=== PATIENT | male | born 1970 | race Caucasian/White ===

== ENCOUNTER 2020-10-17 11:54 | Emergency (ER) | payer OTHER ==
[~2020-10-17] VITALS: Ht 167.6 cm; Wt 98.9 kg
[2020-10-17 12:00] VITALS: BP 154/100
[2020-10-17] MEDS ORDERED: PROAIR HFA8.5 GM INH (12:04)
[2020-10-17] MEDS ORDERED: NORCO5 PO (12:56)
== END 2020-10-17 13:00 | disposition home or self-care (01) ==
LOC: M.ERS 11:54
DX: M25.462 Effusion, left knee (principal); R60.0 Localized edema; J45.909 Unspecified asthma, uncomplicated

== ENCOUNTER → 2020-10-24 | Outpatient (CLI) | payer OTHER ==
[~2020-10-24] MED LIST: NORCO5 PO; PROAIR HFA8.5 GM INH
== END ==
LOC: M.MRI 11:26
PROVIDERS: ATTEND Family Medicine
DX: S83.271A Complex tear of lateral meniscus, current injury, right knee, initial encounter (principal); S83.242A Other tear of medial meniscus, current injury, left knee, initial encounter; S83.282A Other tear of lateral meniscus, current injury, left knee, initial encounter; S83.241A Other tear of medial meniscus, current injury, right knee, initial encounter; M25.461 Effusion, right knee; X58.XXXA Exposure to other specified factors, initial encounter; Y93.89 Activity, other specified; Y92.89 Other specified places as the place of occurrence of the external cause; Y99.8 Other external cause status; M25.562 Pain in left knee